=== PATIENT | male | born 1950 | race Asian ===

== ENCOUNTER 2020-02-16 10:04 | Day surgery (SDC) | payer MEDICARE, OTHER ==
[2020-02-16] MEDS ORDERED: LACTATED RINGERS 1,000 ML IV ONE ×2 (10:28→12:02)
[2020-02-16] MEDS ORDERED: MIDAZOLAM 2 MG/2 ML VIAL IVP ONE (11:33)
[2020-02-16] MEDS ORDERED: fentaNYL 250 MCG/5 ML VIAL IVP ONE (11:33)
[2020-02-16 12:20] VITALS: BP 110/90
== END 2020-02-16 10:05 | disposition home or self-care (01) ==
LOC: SDS 10:04
PROVIDERS: ATTEND Surgery
PROC: 0DBH8ZZ Excision of Cecum, Via Natural or Artificial Opening Endoscopic (ICD-10-PCS; 2020-02-16)
PROC: 0DBK8ZZ Excision of Ascending Colon, Via Natural or Artificial Opening Endoscopic (ICD-10-PCS; principal; 2020-02-16 11:15)
DX: Z12.11 Encounter for screening for malignant neoplasm of colon (principal); D12.2 Benign neoplasm of ascending colon; K63.89 Other specified diseases of intestine; K57.30 Diverticulosis of large intestine without perforation or abscess without bleeding
CPT/HCPCS: 45380; 45385; J3010; J7120

== ENCOUNTER 2021-10-08 06:51 | Outpatient (CLI) | payer MEDICARE, OTHER ==
--- NOTE | 2021-10-08 11:31 | Ultrasound Report ---
PROCEDURE: Aorta Screening INDICATIONS: SCREENING FOR CARDIOVASCULAR DISEASE TECHNIQUE: Real time scanning was performed of the aorta and iliac arteries, with image documentatio n. COMPARISON: None. FINDINGS: Aorta: Proximal aortic diameter measures 2.6 x 2.7 cm. Mid-aorta measures 2.2 x 2.2 cm. Distal aor tic diameter is 2 x 2.3 cm. Iliac arteries: Right common iliac artery measures 1.5 x 1.7 cm. Left common iliac artery measures 1.5 x 1.5 cm. IMPRESSION: No abdominal aortic aneurysm. Reviewed by: Garfield Watson MD on 10/08/2021 11:29 AM PDT Approved by: Garfield Watson MD on 10/08/2021 11:29 AM PDT Station ID: [id number]
== END 2021-10-08 06:52 | disposition home or self-care (01) ==
LOC: DI 06:51
PROVIDERS: ATTEND Internal Medicine
DX: Z13.6 Encounter for screening for cardiovascular disorders (principal)